=== PATIENT | male | born 1995 | race African-American/Black ===

== ENCOUNTER 2018-05-17 23:10 | Emergency (ER) | payer BC ==
[~2018-05-17] VITALS: Ht 188 cm; Wt 97.7 kg
[~2018-05-17 23:10] MED LIST: AMOXICILLIN 8751 TAB PO; NORCO 325 MG-51 TAB PO; PREDNISONE20 MG PO
[2018-05-17 23:17] VITALS: TEMP 96
[2018-05-18 00:46] LABS: BASO % 0.3 % (0.0-2.0); EOS # 0.1 (0.0-0.7); EOS % 0.7 % (0-4.0); GRAN # 9.7 (1.4-6.5); HEMATOCRIT 41.7 % (42.0-52.0); HEMOGLOBIN 14.4 g/dl (13.5-18.0); LYMPH # 1.6 (1.2-3.4); MEAN CELL VOLUME 99 fl (80.0-100.0); MEAN CORPUSCULAR HEMOGLOBIN 34 pg (27.0-31.0); MEAN CORPUSCULAR HGB CONC 35 g/dl (33.0-37.0); MONO # 0.8 (0.1-0.6); MONO % 6.5 % (1.7-9.3); PLATELET COUNT 230 K/mm3 (130-400); RED BLOOD COUNT 4.23 M/mm3 (4.20-5.60); REDCELL DISTRIBUTION WIDTH-CV 12.9 % (11.5-14.5)
[2018-05-18 00:55] LABS: ALBUMIN 4.6 gm/dL (3.5-5.0); BILIRUBIN,TOTAL 1.1 mg/dL (0.0-1.0); CALCIUM 10.1 mg/dL (8.4-10.2); CREATININE, serum 1.13 mg/dL (0.66-1.25); POTASSIUM 3.6 mmol/L (3.4-5.0); TOTAL PROTEIN 8.2 gm/dL (6.4-8.2)
[2018-05-18] MEDS ORDERED: CIPRO 500MG TA500 MG PO (01:59)
[2018-05-18] MEDS ORDERED: FLAGYL500 MG PO (01:59)
[2018-05-18] MEDS ORDERED: ULTRAM 50MG TAB50 MG PO (01:59)
[2018-05-18] MEDS ORDERED: ZOFRAN 4MG T4 MG/TAB PO (01:59)
[2018-05-18 02:11] LABS: PROTHROMBIN TIME 11.5 SECONDS (9.7-12.8)
[2018-05-18 02:35] VITALS: BP 118/52; PULSE 64
== END 2018-05-18 02:38 | disposition home or self-care (01) ==
LOC: COL.ER 23:10
PROVIDERS: Emergency Medicine; Nurse Practitioner Primary Care
DX: K52.9 Noninfective gastroenteritis and colitis, unspecified (principal); F12.90 Cannabis use, unspecified, uncomplicated
CPT/HCPCS: J2270; J2405; Q9967